=== PATIENT | female | born 1980 | race Caucasian/White ===

== ENCOUNTER 2016-05-01 13:10 | Emergency (ER) | payer OTHER ==
[2016-05-01] MEDS ORDERED: Azithromycin 250 MG TAB ONE (13:53)
[2016-05-01] MEDS ORDERED: Ibuprofen 800 MG TAB ONE (13:53)
[2016-05-01] MEDS ORDERED: predniSONE 20 MG TAB ONE (13:53)
--- NOTE | 2016-05-01 14:17 | ERRECORD ---
[facility] EMERGENCY RECORD HPI COUGH (13:48 RWAG) CHIEF COMPLAINT: Patient presents for evaluation of cough. HISTORIAN: History provided by patient. LOCATION: Symptoms are localized, most severe to sore throat. QUALITY: Unable to describe the quality of the pain. SEVERITY: Maximum severity of symptoms mild, Currently symptoms are mild. TIME COURSE: Patient unable to describe onset of symptoms, There has been no change in the patient's symptoms over time. ASSOCIATED WITH: No associated symptoms. EXACERBATED BY: Patient's condition exacerbated by nothing. RELIEVED BY: Patient's condition relieved by nothing. ROS (13:49 RWAG) CONSTITUTIONAL: Negative constitutional review of systems. EYES: Negative eye review of systems. ENT: Historian reports sore throat. CARDIOVASCULAR: Negative cardiovascular review of systems. RESPIRATORY: Negative respiratory review of systems. GI: Negative gastrointestinal review of systems. GENITOURINARY FEMALE: Negative genitourinary review of systems. MUSCULOSKELETAL: Negative musculoskeletal review of systems. SKIN: Negative skin review of systems. NEUROLOGIC: Negative neurologic review of systems. ENDOCRINE: Negative endocrine review of systems. HEMO/LYMPHATIC: Normal hematologic/lymphatic system review. ALLERGIC/IMMUNOLOGIC: Normal allergy/immunologic system review. PSYCHIATRIC: Negative psychiatric review of systems. NOTES: All systems reviewed, negative except as described above. PAST MEDICAL HISTORY (13:25 MCBE) MEDICAL HISTORY: Flu vaccine up to date, Tetanus immunization up to date, Pneumococcal vaccine up to date, Flu vaccine up to date, Tetanus immunization up to date, Date of immunization: january 2016, Past medical history includes endocrine disease, hypothyroidism,includes history of hypertension, pulmonary disease, asthma. FEMALE SURGICAL HISTORY: Surgical history of tubal ligation. PSYCHIATRIC HISTORY: Psychiatric history includes, anxiety. SOCIAL HISTORY: Patient denies alcohol use, Patient denies drug use, Patient has no smoking history. KNOWN ALLERGIES Penicillins CURRENT MEDICATIONS (13:19 MCBE) None &a-1R&a+25V*p+0X*e3528S*c202B*c15G*c2P*p-0X&a-25V&a+1R Name: Vanna Nixon : 1980 F35 MedRec: [id number] AcctNum: [id number] Prepared: Tony May 01, 2016 14:12 by Interface Page 1 of 3 pMD [facility] EMERGENCY RECORD VITAL SIGNS (13:18 BE) VITAL SIGNS: BP: 144/97, Pulse: 98, Resp: 18, Temp: 96.6 (Oral), Pain: 0, O2 sat: 100 on Room Air, Time: 05/01/2016 13:18. PHYSICAL EXAM (13:49 RWAG) CONSTITUTIONAL: Vital Signs Reviewed. HEAD: Head exam normal. EYES: Eye exam normal. ENT: Ear exam normal, Nose exam normal, Pharynx, injected bilaterally, with swelling bilaterally, symmetrical, Uvula exam normal, Tonsil exam normal. NECK: Neck exam normal. RESPIRATORY CHEST: Respiratory and chest exam normal. CARDIOVASCULAR: Cardiovascular assessment normal. ABDOMEN FEMALE: Abdominal exam normal. BACK: Back exam normal. UPPER EXTREMITY: Upper extremity exam normal. NEURO: Neuro exam normal. SKIN: Skin exam normal. LYMPHATIC: Lymphatic exam normal. PSYCHIATRIC: Psychiatric exam normal. MEDICATION ADMINISTRATION SUMMARY Drug Name: Zithromax oral, Dose Ordered: 1 g, Route: Oral, Status: Given, Time: 13:58 05/01/2016, Drug Name: Motrin, Dose Ordered: 1 tab(s), Route: Oral, Status: Given, Time: 13:58 05/01/2016, Drug Name: *predniSONE oral, Dose Ordered: 3 tab(s), Route: Oral, Status: Given, Time: 13:52 05/01/2016, *Additional information available in notes, Detailed record available in Medication Service section. PROBLEM LIST No recorded problems DIAGNOSIS (13:53 RW) FINAL: PRIMARY: Acute pharyngitis. PRESCRIPTION Zithromax oral: TABLET : 500 mg : ORAL : Quantity: 1 Unit: tab(s) Route: ORAL Schedule: once a day (in the morning) Dispense: 3 Unit: tab(s) May substitute. Refills: No Refills . (13:51 RWAG) NOTES: No Refills. (13:51 RWAG) predniSONE oral: TABLET : 20 mg : ORAL : Quantity: 3 Unit: tab(s) Route: ORAL Schedule: once a day (in the morning) Dispense: 15 Unit: tab(s) May substitute. Refills: No Refills . (13:52 RW) &a-1R&a+25V*p+0X*c1955K*c202B*c15G*c2P*p-0X&a-25V&a+1R Name: Vanna Nixon : 1980 F35 MedRec: [id number] AcctNum: [id number] Prepared: Sat May 01, 2016 14:12 by Interface Page 2 of 3 pMD [facility] EMERGENCY RECORD NOTES: No Refills. (13:52 RWAG) DISPOSITION PATIENT: Disposition Type: Discharge, Disposition: *Discharge Home, Disposition Transport: Car, Condition: Improved. (13:53 RWAG) Patient left the department. (14:08 SURJIT) Dickson: SURJIT=Tammy Harkins RWAG=MD Kameron, Madan &a-1R&a+25V*p+0X*q2135A*c202B*c15G*c2P*p-0X&a-25V&a+1R Name: Vanna Nixon : 1980 F35 MedRec: [id number] AcctNum: [id number] Prepared: Tony May 01, 2016 14:12 by Interface Page 3 of 3 pMD MTDD
--- NOTE | 2016-05-01 14:21 | PICIS ---
[facility] EMERGENCY RECORD TRIAGE (13:19 MCBE) TRIAGE NOTES: complains of sore throat. patient complaints of not being able to eat since Tuesday. (13:19 MCBE) PATIENT: NAME: Vanna Nixon, AGE: 35, GENDER: female, : Tue1980, TIME OF GREET: Sat May 01, 2016 13:11, PREFERRED LANGUAGE: Portuguese, ETHNICITY: Not or , ECODE BILLING MAP: [facility], SSN: [id number], Zip Code: [address], KG WEIGHT: 97.07, PHONE: , , , PERSON ID: [id number]. (13:19 MCBE) COMPLAINT: COUGH,CONGESTION. (13:19 MCBE) ADMISSION: URGENCY: 4 Non Urgent, ADMISSION SOURCE: Home, TRANSPORT: CAR, BED: TRIAGE. (13:19 MCBE) SIRS SCORING: Heart Rate 55-109 (0), Temp range 96.8-101.1 (0), respiratory rate 12-24 (0), Mental Status altered: no (0). (13:25 MCBE) TRIAGE SCREENING: Patient denies suicidal ideation, Patient denies presence of domestic violence. (13:25 MCBE) PROVIDERS: TRIAGE NURSE: Tammy Harkins. (13:19 MCBE) VITAL SIGNS: BP 144/97, Pulse 98, Resp 18, Temp 96.6, (Oral), Pain 0, O2 Sat 100, on Room Air, Time 05/01/2016 13:18. (13:18 MCBE) KNOWN ALLERGIES Penicillins CURRENT MEDICATIONS (13:19 MCBE) None VITAL SIGNS (13:18 MCBE) VITAL SIGNS: BP: 144/97, Pulse: 98, Resp: 18, Temp: 96.6 (Oral), Pain: 0, O2 sat: 100 on Room Air, Time: 05/01/2016 13:18. NURSING ASSESSMENT: HEAD-TO-TOE (13:20 MCBE) CONSTITUTIONAL: Complex assessment performed, Patient arrives ambulatory, Gait steady, History obtained from patient, Patient appears comfortable, Patient cooperative, Patient alert, Oriented to person, place and time, Skin warm, Skin dry, Skin normal in color, Mucous membranes pink, Mucous membranes moist, Patient is well-groomed. PAIN: Patient rates pain as 0 out of 10. NEURO: Pupils equally round and reactive to light, Able to close eyes, Face symmetrical, Speech normal, GCS:, Eye opening: (4) - Spontaneous, Verbal: (5) - Oriented/conversive, Motor: (6) - Obeys commands/Spontaneous, GCS Total: 15. ENT: Ear assessment findings include ear normal to inspection, Nasal assessment findings include nose normal to inspection, Mouth and throat assessment findings include mouth inspection normal. RESPIRATORY/CHEST: Breath sounds clear, Respiratory assessment findings include respiratory effort easy, Respirations regular, Conversing normally, Neck and chest exam findings include trachea &a-1R&a+25V*p+0X*z3557O*c202B*c15G*c2P*p-0X&a-25V&a+1R Name: Vanna Nixon : 1980 F35 MedRec: [id number] AcctNum: [id number] Prepared: Sat May 01, 2016 14:18 by Interface Page 1 of 6 pMD [facility] EMERGENCY RECORD midline, Chest expansion equal, Chest movement symmetrical, no signs of distress, no retractions noted. CARDIOVASCULAR: Cardiovascular assessment findings include heart rate normal, Heart rhythm normal sinus, Heart sounds normal, S1, S2, Left radial pulse +3(easily palpated, considered normal), Right radial pulse +3(easily palpated, considered normal). ABDOMEN: Abdomen assessment findings include abdomen symmetrical, Abdomen soft, non-tender, Bowel sound normal, no associated nausea, no associated vomiting, no associated diarrhea, no associated constipation. LEFT UPPER EXTREMITY: Left upper extremity assessment findings include capillary refill less than 2 seconds, Skin color normal to hand, Skin temperature to hand warm, Distal sensation intact, Muscle tone normal, radial pulse is +3, brachial pulse is +3, Inspection findings include: No pressure ulcer to the shoulder, Inspection findings include no pressure ulcer to the elbow, Inspection findings include no pressure ulcer. RIGHT UPPER EXTREMITY: Right upper extremity assessment findings include capillary refill less than 2 seconds, Skin color normal to hand, Skin temperature to hand warm, Distal sensation intact, Muscle tone normal, radial pulse is +3, brachial pulse is +3, Inspection findings include: No pressure ulcer to the shoulder, Inspection findings include no pressure ulcer to the elbow, Inspection findings include no pressure ulcer. LEFT LOWER EXTREMITY: Left lower extremity assessment findings include capillary refill less than 2 seconds, Skin color normal, Skin temperature warm, Distal sensation intact, Muscle tone normal, Inspection findings include no pressure ulcers to the hip, Inspection findings include no pressure ulcer to the sacrum, Inspection findings include no pressure ulcer to the heel, Inspection findings include no pressure ulcer. RIGHT LOWER EXTREMITY: Right lower extremity assessment findings include capillary refill less than 2 seconds, Skin color normal, Skin temperature warm, Distal sensation intact, Muscle tone normal, Inspection findings include no pressure ulcers to the hip, Inspection findings include no pressure ulcer to the sacrum, Inspection findings include no pressure ulcer to the heel, Inspection findings include no pressure ulcer. NURSING PROCEDURE: DISCHARGE NOTE (14:03 MCBE) DISCHARGE: Patient discharged to home, ambulating without assistance, driving self, accompanied by other family member, Summary of Care printed/ provided, Discharge instructions given to patient, Simple or moderate discharge teaching performed, by TAMMY PONCE, EXPLAINED DISCHARGE INSTRUCTIONS. INSTRUCTED TO RETURN IF S/S WORSEN. INSTRUCTED TO COMPLETE ALL ANITBIOTICS. INFORMED PATIENT PRESCRIPTION CAN BE FILLED AT ANY PHARMACY, Prescriptions given and instructions on side effects given, Above person(s) verbalized understanding of discharge instructions and follow-up care, Patient treated and evaluated by physician. &a-1R&a+25V*p+0X*y5443H*c202B*c15G*c2P*p-0X&a-25V&a+1R Name: Vanna Nixon Serenity : 1980 F35 MedRec: [id number] AcctNum: [id number] Prepared: Sat May 01, 2016 14:18 by Interface Page 2 of 6 pMD [facility] EMERGENCY RECORD BELONGINGS: Belongings and valuables with patient upon arrival to the Emergency Department include:, Belongings and valuables with patient at time of discharge include:, pants, shirt, shoes, Belongings remain with patient, Valuables remain with patient. MEDICATION ADMINISTRATION SUMMARY Drug Name: Zithromax oral, Dose Ordered: 1 g, Route: Oral, Status: Given, Time: 13:58 05/01/2016, Drug Name: Motrin, Dose Ordered: 1 tab(s), Route: Oral, Status: Given, Time: 13:58 05/01/2016, Drug Name: *predniSONE oral, Dose Ordered: 3 tab(s), Route: Oral, Status: Given, Time: 13:52 05/01/2016, *Additional information available in notes, Detailed record available in Medication Service section. MEDICATION SERVICE Motrin: Order: Motrin (ibuprofen) - Dose: 1 tab(s) : Oral Schedule: Now Ordered by: Madan Melo MD Entered by: Madan Melo MD [facility] May 01, 2016 13:47 , Acknowledged by: Tammy Harkins [facility] May 01, 2016 13:51 Documented as given by: Tammy Harkins [facility] May 01, 2016 13:58 Patient, Medication, Dose, Route and Time verified prior to administration. Amount given: 1 TAB, Site: Medication administered P.O., Patient appears Awake and alert- acceptable, Correct patient, time, route, dose and medication confirmed prior to administration, Patient advised of actions and side-effects prior to administration, Allergies confirmed and medications reviewed prior to administration, Patient in position of comfort, Side rails up, Cart in lowest position, Family at bedside, Call light in reach. predniSONE oral: Order: predniSONE oral (prednisone) - Dose: 3 tab(s) : Oral Schedule: Now Notes: 60mg Ordered by: Madan Melo MD Entered by: Madan Melo MD [facility] May 01, 2016 13:48 , Acknowledged by: Tammy Harkins [facility] May 01, 2016 13:51 Documented as given by: Tammy Harkins [facility] May 01, 2016 13:52 Patient, Medication, Dose, Route and Time verified prior to administration. Amount given: 3 TABS, Site: Medication administered P.O., Patient appears Awake and alert- acceptable, Correct patient, time, route, dose and medication confirmed prior to administration, Patient advised of actions and side-effects prior to administration, Allergies confirmed and medications reviewed prior to administration, Patient in position of comfort, Side rails up, Cart in lowest position, Family at bedside, Call light in reach. &a-1R&a+25V*p+0X*k6180H*c202B*c15G*c2P*p-0X&a-25V&a+1R Name: Vanna Nixon : 1980 F35 MedRec: [id number] AcctNum: [id number] Prepared: Sat May 01, 2016 14:18 by Interface Page 3 of 6 pMD [facility] EMERGENCY RECORD Zithromax oral: Order: Zithromax oral (azithromycin) - Dose: 1 g : Oral Schedule: Now Ordered by: Madan Melo MD Entered by: Madan Melo MD [facility] May 01, 2016 13:46 , Acknowledged by: Tammy Harkins [facility] May 01, 2016 13:51 Documented as given by: Tammy Harkins [facility] May 01, 2016 13:58 Patient, Medication, Dose, Route and Time verified prior to administration. Amount given: 1G, Site: Medication administered P.O., Patient appears Awake and alert- acceptable, Correct patient, time, route, dose and medication confirmed prior to administration, Patient advised of actions and side-effects prior to administration, Allergies confirmed and medications reviewed prior to administration, Patient in position of comfort, Side rails up, Cart in lowest position, Family at bedside, Call light in reach. HPI COUGH (13:48 RW) CHIEF COMPLAINT: Patient presents for evaluation of cough. HISTORIAN: History provided by patient. LOCATION: Symptoms are localized, most severe to sore throat. QUALITY: Unable to describe the quality of the pain. SEVERITY: Maximum severity of symptoms mild, Currently symptoms are mild. TIME COURSE: Patient unable to describe onset of symptoms, There has been no change in the patient's symptoms over time. ASSOCIATED WITH: No associated symptoms. EXACERBATED BY: Patient's condition exacerbated by nothing. RELIEVED BY: Patient's condition relieved by nothing. ROS (13:49 RW) CONSTITUTIONAL: Negative constitutional review of systems. EYES: Negative eye review of systems. ENT: Historian reports sore throat. CARDIOVASCULAR: Negative cardiovascular review of systems. RESPIRATORY: Negative respiratory review of systems. GI: Negative gastrointestinal review of systems. GENITOURINARY FEMALE: Negative genitourinary review of systems. MUSCULOSKELETAL: Negative musculoskeletal review of systems. SKIN: Negative skin review of systems. NEUROLOGIC: Negative neurologic review of systems. ENDOCRINE: Negative endocrine review of systems. HEMO/LYMPHATIC: Normal hematologic/lymphatic system review. ALLERGIC/IMMUNOLOGIC: Normal allergy/immunologic system review. PSYCHIATRIC: Negative psychiatric review of systems. NOTES: All systems reviewed, negative except as described above. PAST MEDICAL HISTORY (13:25 MC) MEDICAL HISTORY: Flu vaccine up to date, Tetanus &a-1R&a+25V*p+0X*f6507Y*c202B*c15G*c2P*p-0X&a-25V&a+1R Name: Vanna Nixon : 1980 F35 MedRec: [id number] AcctNum: [id number] Prepared: Sat May 01, 2016 14:18 by Interface Page 4 of 6 pMD [facility] EMERGENCY RECORD immunization up to date, Pneumococcal vaccine up to date, Flu vaccine up to date, Tetanus immunization up to date, Date of immunization: january 2016, Past medical history includes endocrine disease, hypothyroidism,includes history of hypertension, pulmonary disease, asthma. FEMALE SURGICAL HISTORY: Surgical history of tubal ligation. PSYCHIATRIC HISTORY: Psychiatric history includes, anxiety. SOCIAL HISTORY: Patient denies alcohol use, Patient denies drug use, Patient has no smoking history. PHYSICAL EXAM (13:49 RWAG) CONSTITUTIONAL: Vital Signs Reviewed. HEAD: Head exam normal. EYES: Eye exam normal. ENT: Ear exam normal, Nose exam normal, Pharynx, injected bilaterally, with swelling bilaterally, symmetrical, Uvula exam normal, Tonsil exam normal. NECK: Neck exam normal. RESPIRATORY CHEST: Respiratory and chest exam normal. CARDIOVASCULAR: Cardiovascular assessment normal. ABDOMEN FEMALE: Abdominal exam normal. BACK: Back exam normal. UPPER EXTREMITY: Upper extremity exam normal. NEURO: Neuro exam normal. SKIN: Skin exam normal. LYMPHATIC: Lymphatic exam normal. PSYCHIATRIC: Psychiatric exam normal. EVENTS TRANSFER: Triage to Emergency Triage. (Sat May 01, 2016 13:19 MCBE) Emergency Triage to Emergency Room -05. (13:19 MCBE) Removed from Emergency Emergency Room -05. (14:08 MCBE) PROBLEM LIST No recorded problems DIAGNOSIS (13:53 RWAG) FINAL: PRIMARY: Acute pharyngitis. DISPOSITION PATIENT: Disposition Type: Discharge, Disposition: *Discharge Home, Disposition Transport: Car, Condition: Improved. (13:53 RWAG) Patient left the department. (14:08 MCBE) INSTRUCTION (14:00 RWAG) PHARMACY: Zithromax oral, predniSONE oral. SPECIAL: Follow-up with your PCP. &a-1R&a+25V*p+0X*w9812O*c202B*c15G*c2P*p-0X&a-25V&a+1R Name: Vanna Nixon : 1980 F35 MedRec: [id number] AcctNum: [id number] Prepared: Sat May 01, 2016 14:18 by Interface Page 5 of 6 pMD [facility] EMERGENCY RECORD PRESCRIPTION Zithromax oral: TABLET : 500 mg : ORAL : Quantity: 1 Unit: tab(s) Route: ORAL Schedule: once a day (in the morning) Dispense: 3 Unit: tab(s) May substitute. Refills: No Refills . (13:51 RWAG) NOTES: No Refills. (13:51 RWAG) predniSONE oral: TABLET : 20 mg : ORAL : Quantity: 3 Unit: tab(s) Route: ORAL Schedule: once a day (in the morning) Dispense: 15 Unit: tab(s) May substitute. Refills: No Refills . (13:52 RWAG) NOTES: No Refills. (13:52 RWAG) IMAGING *SUPPLY CHARGE SHEET: Image captured from scanner. (14:07 [facility]) *DISCHARGE INSTRUCTIONS RECEIPT: Image captured from scanner. (14:08 BE) ADMIN (14:10 RWAG) DIGITAL SIGNATURE: MD Kameron, Madan. Dickson: BE=Tammy Harkins RWAG=MD Melo Richard &a-1R&a+25V*p+0X*n1066E*c202B*c15G*c2P*p-0X&a-25V&a+1R Name: Vanna Nixon : 1980 F35 MedRec: [id number] AcctNum: [id number] Prepared: Sat May 01, 2016 14:18 by Interface Page 6 of 6 pMD MTDD
== END 2016-05-01 14:03 | disposition home or self-care (01) ==
LOC: NAV ERS 13:10
DX: J02.9 Acute pharyngitis, unspecified (principal); E03.9 Hypothyroidism, unspecified; I10 Essential (primary) hypertension; J45.909 Unspecified asthma, uncomplicated; F41.9 Anxiety disorder, unspecified; Z98.51 Tubal ligation status
CPT/HCPCS: 99283; J7506

== ENCOUNTER 2016-07-03 17:17 | Emergency (ER) | payer OTHER ==
[2016-07-03] MEDS ORDERED: Ketorolac Tromethamine 60 MG/2 ML VIAL ONE (17:45)
[2016-07-03] MEDS ORDERED: predniSONE 20 MG TAB ONE (18:25)
[2016-07-03] MEDS ORDERED: Ciprofloxacin 500 MG TAB ONE (18:25)
== END 2016-07-03 18:45 | disposition home or self-care (01) ==
LOC: NAV ERS 17:17
DX: R05 Cough (principal); E03.9 Hypothyroidism, unspecified; I10 Essential (primary) hypertension; F41.9 Anxiety disorder, unspecified; J45.909 Unspecified asthma, uncomplicated
CPT/HCPCS: 96372; J1885; J7506

== ENCOUNTER 2016-11-19 23:39 | Emergency (ER) | payer OTHER ==
[~2016-11-19 23:39] MED LIST: Iopamidol 370 76% 100 ML VIAL ONE
[2016-11-20 00:21] LABS: Bilirubin Negative (Negative); Blood, Urine Small (Negative); Clarity Cloudy (Clear); Glucose, Urine (Dipstick) Negative (Negative); Leukocyte Large (Negative); Nitrite Positive (Negative); Protein, Urine (Dipstick) 30 mg/dL (Neg-Trace); Urobilinogen 0.2 mg/dL (0.2-1.0); pH, Urine 5.5 (5.0-9.0)
[2016-11-20 00:22] LABS: Pregnancy Test - Urine (BHCG) Negative (NEGATIVE); Pregu Control Background? CLEAR/WHITE (CLR/WHITE); Pregu Control Bar Appear? YES (CONTROL BAR)
[2016-11-20 00:27] LABS: Bacteria/HPF 3+ HPF (None Seen); RBC/HPF 0-3 HPF (0-3)
[2016-11-20 00:30] LABS: #Basophils 0.1 thou/uL (0.0-0.2); #Eosinphils 0.3 thou/uL (0.0-0.7); #Monocytes 0.5 thou/uL (0.11-0.59); #Neutrophils 6.3 thou/uL (1.40-6.50); %Basophils 0.7 % (0.0-1.0); %Eosinophils 3.4 % (0.0-10.0); %Lymphocytes 21.6 % (21.0-51.0); %Monocytes 5.7 % (0.0-10.0); %Neutrophils 68.7 % (42.0-75.0); Hemoglobin 11.8 g/dL (12.0-16.0); Mean Corpuscular HGB CONC 33.6 g/dL (32.0-36.0); Mean Corpuscular Hemoglobin 28.1 pg (27.0-31.0); Mean Corpuscular Volume 83.6 fl (81.0-99.0); Mean Platelet Volume 7.1 fL (7.4-10.4); Platelet Count 317 thou/uL (130-400); RBC Distribution Width 12.2 % (11.5-14.5); Red Blood Cell (RBC) Count 4.19 mill/uL (4.20-5.40); White Blood Cell (WBC) Count 9.1 thou/uL (4.8-10.8)
[2016-11-20 00:43] LABS: ALT (SGPT) 14 U/L (8-55); AST (SGOT) 16 U/L (5-34); Albumin 3.8 g/dL (3.5-5.0); Alkaline Phosphatase 75 U/L (40-150); Anion Gap 15 mmol/L (10-20); BUN (Urea Nitrogen) 18 mg/dL (7.0-18.7); Bilirubin, Total 0.3 mg/dL (0.2-1.2); Calc. Creatinine Clearance 0 mL/min (70-130); Calcium 9.4 mg/dL (7.8-10.44); Carbon Dioxide 21 mmol/L (22-29); Chloride 107 mmol/L (98-107); Estimated GFR-MDRD 70; Globulin 3.6 g/dL (2.4-3.5); Glucose 117 mg/dL (70-105); Potassium 4.1 mmol/L (3.5-5.1); Protein, Total 7.4 g/dL (6.0-8.3); Sodium 139 mmol/L (136-145)
[2016-11-20] MEDS ORDERED: Sodium Chloride 0.9% 1,000 ML ONE (00:48)
[2016-11-20] MEDS ORDERED: Fentanyl 100 MCG/2 ML VIAL ONE (00:48)
[2016-11-20] MEDS ORDERED: Ondansetron HCl/PF 4 MG/2 ML Vial ONE ×2 (00:48→01:32)
[2016-11-20] MEDS ORDERED: Morphine Sulfate 2 MG/ML SYRINGE ONE (01:56)
--- NOTE | 2016-11-20 09:08 | CT ---
PRELIMINARY REPORT/[facility]/EMERGENCY AFTER HOURS PROCEDURE: EXAM: CT Abdomen and Pelvis With Intravenous Contrast CLINICAL HISTORY: 36 years old, female; Pain; Abdominal pain; Localized; Left; Prior surgery; Surgery date: 6+ months; Surgery type: Tubal ligation; Patient HX: Presents with left sided abdominal pain x 5 days with con stipation; History of HTN, obesity, anxiety, small bowel obstruction; ; Additional info: Pt's iv connection began to leak mid-injection, had to pause to fix connection, then resumed injection. TECHNIQUE: Axial computed tomography images of the abdomen and pelvis with intravenous contrast. This CT exam w as performed using one or more of the following dose reduction techniques: automated exposure contro l, adjustment of the mA and/or kV according to patient size, and/or use of iterative reconstruction technique. Coronal and sagittal reformatted images were created and reviewed. CONTRAST: 96 mL of ISOVUE 370 administered intravenously. EXAM DATE/TIME: Exam ordered 11/20/2016 1:54 AM COMPARISON: No relevant prior studies available. FINDINGS: Lower thorax: No acute findings. ABDOMEN: Liver: Unremarkable. No mass. Gallbladder and bile ducts: Unremarkable. No calcified stones. No ductal dilation. Pancreas: Unremarkable. No mass. No ductal dilation. Spleen: Unremarkable. No splenomegaly. Adrenals: Unremarkable. No mass. Kidneys and ureters: Unremarkable. No solid mass. No hydronephrosis. Stomach and bowel: Unremarkable. No obstruction. No mucosal thickening. Appendix: Normal appendix. PELVIS: Bladder: Unremarkable. No mass. Reproductive: Unremarkable as visualized. ABDOMEN and PELVIS: Intraperitoneal space: Unremarkable. No free air. No significant fluid collection. Bones/joints: No acute fracture. No dislocation. Soft tissues: Unremarkable. Vasculature: Unremarkable. No abdominal aortic aneurysm. Lymph nodes: Unremarkable. No enlarged lymph nodes. IMPRESSION: No acute findings. Thank you for allowing us to participate in the care of your patient. Dictated and Authenticated by: Prem Medina MD 11/20/2016 2:39 AM Central Time ([place] \T\ [place]) FINAL REPORT BY DR. [facility] EMERGENCY AFTER HOURS STUDY CT ABDOMEN WITH CONTRAST CT PELVIS WITH CONTRAST: HISTORY: 36-year-old female with left-sided abdominal pain for 5 days. TECHNIQUE: IV injection of iodinated contrast media: Administered. Oral contrast media: Administered FINDINGS: Liver: No focal solid mass. Spleen: No splenomegaly. Pancreas: No mass or surrounding fat stranding. Adrenals: No mass. Kidneys: No hydronephrosis or enhancement abnormalities. Ureters: No dilation. Bladder: No pathology identified. Abdominal aorta: No aneurysm. Small bowel: No dilation. Colon: No adjacent fat stranding. Appendix: No dilation or adjacent fat stranding. Free air: None. Free fluid: None. Agree with preliminary report by [facility]. IMPRESSION: No major pathology identified. hugo [] POS: HANNY
== END 2016-11-20 03:20 | disposition home or self-care (01) ==
LOC: NAV ERS 23:39
DX: N39.0 Urinary tract infection, site not specified (principal); I10 Essential (primary) hypertension; E03.9 Hypothyroidism, unspecified; F41.9 Anxiety disorder, unspecified; J45.909 Unspecified asthma, uncomplicated
CPT/HCPCS: 74177; 80053; 81003; 81015; 81025; 85025; 87077; 87086; 87186; 96361; 96374; 96375; 96376; J2270; J2405; J3010; J7050

== ENCOUNTER 2018-08-03 06:07 | Emergency (ER) | payer OTHER ==
[2018-08-03] MEDS ORDERED: cefTRIAXone\\ROCEPHIN 1 GM VIAL ONE (06:48)
[2018-08-03] MEDS ORDERED: Lidocaine 1% (PF) 30 ML VIAL ONE (06:48)
== END 2018-08-03 07:10 | disposition home or self-care (01) ==
LOC: NAV ERS 06:07
DX: H66.91 Otitis media, unspecified, right ear (principal); E03.9 Hypothyroidism, unspecified; J45.909 Unspecified asthma, uncomplicated; I10 Essential (primary) hypertension; F41.9 Anxiety disorder, unspecified; F32.9 Major depressive disorder, single episode, unspecified; Z79.891 Long term (current) use of opiate analgesic
CPT/HCPCS: 96372; J0696; J2001

== ENCOUNTER 2020-09-17 13:01 | Emergency (ER) | payer OTHER ==
[2020-09-17] MEDS ORDERED: Ketorolac Tromethamine 30 MG/ML VIAL ONE ×2 (13:39)
[2020-09-17] MEDS ORDERED: Acetaminophen 500 MG TAB ONE (13:39)
== END 2020-09-17 13:58 | disposition home or self-care (01) ==
LOC: NAV ERS 13:01
DX: S80.02XA Contusion of left knee, initial encounter (principal); E03.9 Hypothyroidism, unspecified; I10 Essential (primary) hypertension; J45.909 Unspecified asthma, uncomplicated; W18.30XA Fall on same level, unspecified, initial encounter
CPT/HCPCS: 96372; J1885

== ENCOUNTER 2021-01-02 07:48 | Emergency (ER) | payer OTHER | END 2021-01-02 08:48 | disposition home or self-care (01) | LOC: NAV ERS 07:48 | DX: J02.9 Acute pharyngitis, unspecified (principal); H65.91 Unspecified nonsuppurative otitis media, right ear; E03.9 Hypothyroidism, unspecified; I10 Essential (primary) hypertension | CPT/HCPCS: 99283 ==

== ENCOUNTER 2021-03-20 20:37 | Emergency (ER) | payer OTHER ==
[2021-03-20] MEDS ORDERED: predniSONE 20 MG TAB ONE (21:17)
[2021-03-20] MEDS ORDERED: Benzonatate 100 MG CAP ONE (21:17)
[2021-03-21 21:35] LABS: SARS-CoV-2 PCR by NAA Not Detected (NotDetected)
== END 2021-03-20 21:55 | disposition home or self-care (01) ==
LOC: NAV ERS 20:37
DX: J06.9 Acute upper respiratory infection, unspecified (principal); Z20.822 Contact with and (suspected) exposure to COVID-19; E03.9 Hypothyroidism, unspecified; I10 Essential (primary) hypertension; J45.909 Unspecified asthma, uncomplicated
CPT/HCPCS: 87804; 99283; J7512; U0003; U0005

== ENCOUNTER 2021-10-13 09:07 | Emergency (ER) | payer OTHER ==
[2021-10-13 09:38] LABS: Bilirubin Negative (Negative); Blood, Urine Negative (Negative); Clarity Clear (Clear); Glucose, Urine (Dipstick) Negative (Negative); Ketone, Urine Negative (Negative); Leukocyte Negative (Negative); Nitrite Negative (Negative); Protein, Urine (Dipstick) Negative (Neg-Trace); Urobilinogen 0.2 mg/dL (Less than 2); pH, Urine 6.5 (5.0-9.0)
[2021-10-13 10:14] LABS: Pregnancy Test - Urine (BHCG) Negative (Negative)
[2021-10-13 10:16] LABS: Pregu Control Background? CLEAR/WHITE (CLR/WHITE); Pregu Control Bar Appear? YES (CONTROL BAR)
[2021-10-13 10:18] LABS: #Eosinphils 0.1 thou/uL (0.0-0.7); #Lymphocytes 1.6 thou/uL (1.20-3.40); #Monocytes 0.4 thou/uL (0.11-0.59); #Neutrophils 5.9 thou/uL (1.40-6.50); %Basophils 0.6 % (0.0-1.0); %Eosinophils 1.3 % (0.0-10.0); %Lymphocytes 19.6 % (21.0-51.0); %Monocytes 4.9 % (0.0-10.0); %Neutrophils 73.5 % (42.0-75.0); Hemoglobin 11.8 g/dL (12.0-16.0); Mean Corpuscular HGB CONC 30.7 g/dL (32.0-36.0); Mean Corpuscular Hemoglobin 27.1 pg (27.0-31.0); Mean Corpuscular Volume 88.2 fL (78.0-98.0); Mean Platelet Volume 7.8 fL (7.4-10.4); Platelet Count 305 thou/uL (130-400); RBC Distribution Width 13.7 % (11.5-14.5); Red Blood Cell (RBC) Count 4.37 mill/uL (4.20-5.40)
[2021-10-13 10:28] LABS: ALT (SGPT) 16 U/L (8-55); AST (SGOT) 9 U/L (5-34); Alkaline Phosphatase 75 U/L (40-110); Anion Gap 15 mmol/L (10-20); BUN (Urea Nitrogen) 12 mg/dL (7.0-18.7); Bilirubin, Total 0.4 mg/dL (0.2-1.2); Calc. Creatinine Clearance 0 mL/min (70-130); Carbon Dioxide 21 mmol/L (22-29); Chloride 108 mmol/L (98-107); Glucose 111 mg/dL (70-105); Lipase 11 U/L (8-78); Potassium 4.5 mmol/L (3.5-5.1); Sodium 139 mmol/L (136-145)
[2021-10-13] MEDS ORDERED: Morphine 4 MG/ML VIAL ONE (10:28)
[2021-10-13] MEDS ORDERED: Ondansetron PF 4 MG/2 ML Vial ONE (10:28)
== END 2021-10-13 11:30 | disposition home or self-care (01) ==
LOC: NAV ERS 09:07
DX: R10.30 Lower abdominal pain, unspecified (principal); R30.0 Dysuria; E03.9 Hypothyroidism, unspecified; I10 Essential (primary) hypertension; J45.909 Unspecified asthma, uncomplicated; R10.814 Left lower quadrant abdominal tenderness; R10.813 Right lower quadrant abdominal tenderness
CPT/HCPCS: 74177; 80053; 81003; 81025; 83690; 85025; 96374; 96375; J2270; J2405; Q9967

== ENCOUNTER 2022-03-18 12:40 | Emergency (ER) | payer OTHER ==
[2022-03-18] MEDS ORDERED: predniSONE 20 MG TAB ONE (12:54)
== END 2022-03-18 13:30 | disposition home or self-care (01) ==
LOC: NAV ERS 12:40
DX: J45.901 Unspecified asthma with (acute) exacerbation (principal); E03.9 Hypothyroidism, unspecified; I10 Essential (primary) hypertension
CPT/HCPCS: 71045; 87804; J7512; J7620

== ENCOUNTER 2022-05-01 10:04 | Emergency (ER) | payer OTHER ==
[2022-05-01] MEDS ORDERED: Ketorolac Tromethamine 60 MG/2 ML VIAL ONE (10:49)
== END 2022-05-01 12:10 | disposition home or self-care (01) ==
LOC: NAV ERS 10:04
DX: S52.122A Displaced fracture of head of left radius, initial encounter for closed fracture (principal); X58.XXXA Exposure to other specified factors, initial encounter
CPT/HCPCS: 29105; 96372; J1885

== ENCOUNTER 2025-03-15 13:41 | Emergency (ER) | payer OTHER | END 2025-03-15 15:45 | disposition home or self-care (01) | LOC: NAV ERS 13:41 | DX: J20.9 Acute bronchitis, unspecified (principal); E11.9 Type 2 diabetes mellitus without complications; E03.9 Hypothyroidism, unspecified; I10 Essential (primary) hypertension; Z79.84 Long term (current) use of oral hypoglycemic drugs; Z79.899 Other long term (current) drug therapy | CPT/HCPCS: 36416; 71046 ==